=== PATIENT | male | born 1990 | race Two or more races ===

== ENCOUNTER 2017-02-26 22:23 | Emergency (ER) | payer SELFPAY ==
[2017-02-26 22:28] VITALS: BP 121/63; PULSE 65; RESP 16; TEMP 97.8; O2SAT 100
--- NOTE | 2017-02-26 22:48 | ED PDOC ---
HPI: Skin/Bite Injury Time Seen by Provider: 02/26/17 22:34 Chief Complaint (Nursing): Abnormal Skin Integrity Chief Complaint (Provider): Right index finger laceration, no bleeding History Per: Patient History/Exam Limitations: no limitations Onset/Duration Of Symptoms: Mins Current Symptoms Are (Timing): Better Quality Of Symptoms: Painful Severity: Mild Pain Scale Rating Of: 2 Additional Complaint(s): Pt states he cut his finger on a dirty knife he had been using to open boxes with. UTD tetanus. Pt states he was bleeding a lot originally so he came to ER> Past Medical History Reviewed: Historical Data, Nursing Documentation, Vital Signs Vital Signs: Last Vital Signs Temp 97.8 F 02/26/17 22:25 Pulse 65 02/26/17 22:25 Resp 16 02/26/17 22:25 BP 121/63 02/26/17 22:25 Pulse Ox 100 02/26/17 23:07 - Medical History PMH: No Chronic Diseases - Surgical History Surgical History: No Surg Hx - Family History Family History: States: No Known Family Hx - Home Medications Home Medications: Ambulatory Orders Medication Instructions Recorded Cephalexin [Keflex] 500 mg PO BID #14 capsule 02/26/17 - Allergies Allergies/Adverse Reactions: Allergies Allergy/AdvReac Type Severity Reaction Status Date / Time No Known Allergies Allergy Verified 02/26/17 22:25 Review of Systems ROS Statement: Except As Marked, All Systems Reviewed And Found Negative Constitutional: Negative for: Fever, Chills Skin: Positive for: Other Physical Exam - Reviewed Nursing Documentation Reviewed: Yes Vital Signs Reviewed: Yes - Physical Exam Appears: Positive for: Well, Non-toxic, No Acute Distress Head Exam: Positive for: ATRAUMATIC, NORMAL INSPECTION, NORMOCEPHALIC Skin: Positive for: Warm. Negative for: Normal Color (0.5 cm laceration, distal right index finger ) Eye Exam: Positive for: Normal appearance ENT: Positive for: Normal ENT Inspection Neck: Positive for: Normal, Painless ROM Respiratory: Negative for: Accessory Muscle Use, Respiratory Distress Back: Positive for: Normal Inspection Extremity: Positive for: Normal ROM Neurologic/Psych: Positive for: Alert, Oriented - ECG O2 Sat by Pulse Oximetry: 100 Medical Decision Making Medical Decision Making: Antibiotic ointment and dressing applied. Antibiotics PO given because pt states it was a very dirty knife. Disposition - Clinical Impression Clinical Impression: Finger laceration - Patient ED Disposition Is Patient to be Admitted: No Counseled Patient/Family Regarding: Diagnosis, Need For Followup - Disposition Disposition: Routine/Home Disposition Time: 22:42 Condition: GOOD Prescriptions: Cephalexin [Keflex] 500 mg PO BID #14 capsule Instructions: Finger Laceration (ED)
== END 2017-02-26 23:54 | disposition home or self-care (01) ==
LOC: H.ER 22:23
DX: S61.210A Laceration without foreign body of right index finger without damage to nail, initial encounter (principal); W26.0XXA Contact with knife, initial encounter; Y92.89 Other specified places as the place of occurrence of the external cause